=== PATIENT | female | born 1980 | race African-American/Black ===

== ENCOUNTER 2019-07-22 11:06 | Day surgery (SDC) | payer OTHER ==
[2019-07-21 09:21] VITALS: BMI 33.0
[2019-07-22] MEDS ORDERED: CLINDAMYCIN PHOSPHATE 600 MG/4 ML VIAL ONE (11:39)
[2019-07-22] MEDS ORDERED: KETOROLAC TROMETHAMINE 30 MG/1 ML VIAL ONE (11:39)
[2019-07-22] MEDS ORDERED: ONDANSETRON 4 MG/2 ML VIAL ONE ×2 (11:39→13:20)
[2019-07-22] MEDS ORDERED: MIDAZOLAM HCL 2 MG/2 ML SINGLE DOSE VIAL ONE ×3 (11:40→13:15)
[2019-07-22] MEDS ORDERED: PROPOFOL 20 ML ONE ×2 (11:40→13:20)
[2019-07-22] MEDS ORDERED: BUPIVACAINE HCL/PF 0.5% (5MG/ML) 10 ML VIAL ONE (12:13)
[2019-07-22] MEDS ORDERED: methylPREDNISolone ACET (DEPO) 40 MG/1 ML VIAL ONE (12:13)
[2019-07-22] MEDS ORDERED: DEXAMETHASONE SOD PHOSPHATE 4 MG/1 ML VIAL ONE (13:20)
[2019-07-22] MEDS ORDERED: SUCCINYLCHOLINE CHLORIDE 200 MG/10 ML SYRINGE ONE (13:20)
[2019-07-22] MEDS ORDERED: ceFAZolin SODIUM 1 GM VIAL ONE (13:20)
[2019-07-22] MEDS ORDERED: methylPREDNISolone ACET (DEPO) 40 MG/1 ML VIAL IM ONE (13:33)
[2019-07-22] MEDS ORDERED: BUPIVACAINE HCL/PF 0.5% (5 MG/ML) 30 ML VIAL IJ ONE (13:33)
[2019-07-22] MEDS ORDERED: IOHEXOL 180 MG/1 ML ML IJ ONE (13:33)
[2019-07-22] MEDS ORDERED: ONDANSETRON 4 MG/2 ML VIAL IVPUSH PRN (13:55)
[2019-07-22] MEDS ORDERED: oxyCODONE HCL 5 MG TABLET PO PRN (13:55)
[2019-07-22] MEDS ORDERED: LACTATED RINGERS SOLUTION 1,000 ML IV SCH (14:00)
[2019-07-22 14:39] VITALS: TEMP 98.1
[2019-07-22 15:02] VITALS: BP 131/86; PULSE 76
--- NOTE | 2019-07-22 16:01 | OP ---
DATE OF OPERATION: 07/22/2019 PREOPERATIVE DIAGNOSIS: Right hip acetabular-labral tear. POSTOPERATIVE DIAGNOSIS: Right hip acetabular-labral tear. PROCEDURE PERFORMED: Aspiration arthrogram to the right hip. SURGEON: Baljit Alaniz MD RIFFLER TENDER: None. ANESTHESIOLOGIST: Naomi Howell MD; monitored anesthesia care was performed. DESCRIPTION OF PROCEDURE: The procedure consisted of the patient being brought in the operating room and gently transferred from the stretcher to the OR table with all bony prominences well padded. Patient was given intravenous antibiotics in a sterile technique throughout the procedure to minimize the risks of infection. A complete risks, benefits, and alternatives discussion was conducted with the patient, which was inclusive of, but not limited to infection, bleeding, , paralysis, increased pain, and need for repeat surgery. The patient asked questions, understood the procedure, and desired to proceed with surgical treatment. An appropriate timeout was conducted, indicating type of surgery, site of surgery, anesthesiologist, and surgeon. Following sterile preparation and draping of the right hip, fluoroscopic guidance was used to deliver a 22-gauge spinal needle into the right hip joint. Contrast was introduced to identify the needle was within the hip joint. Aspiration was performed. A small volume of clear fluid consistent with normal hip joint fluid was withdrawn without evidence of turbidity to the aspiration. Following this, 40 mg Depo-Medrol and Marcaine was instilled in the hip joint. IV contrast was then instilled to ensure that the fluid had gone into the hip joint. The needle was withdrawn. A sterile dressing was applied. The patient was then gently awoken from anesthesia without incident, transferred from the operating room to the recovery room in satisfactory condition. There were no intraoperative complications. BALJIT ALANIZ M.D. [id number]
== END 2019-07-22 15:04 | disposition home or self-care (01) ==
LOC: FASU 11:06
PROVIDERS: ATTEND Orthopaedic Surgery
PROC: 0S993ZZ Drainage of Right Hip Joint, Percutaneous Approach (ICD-10-PCS; 2019-07-22)
PROC: BW1CYZZ Fluoroscopy of Lower Extremity using Other Contrast (ICD-10-PCS; principal; 2019-07-22 13:00)
DX: M25.451 Effusion, right hip (principal); M24.151 Other articular cartilage disorders, right hip
CPT/HCPCS: 73502-TC-RT-FY; 76000-TC-FY; 84703; 94760